=== PATIENT | male | born 1945 | race Caucasian/White ===

== ENCOUNTER 2019-07-11 09:22 | Day surgery (SDC) | payer MEDICARE, BC, OTHER ==
[~2019-07-11] VITALS: Ht 170.2 cm; Wt 77.5 kg
[~2019-07-11 09:22] MED LIST: ACET-683 PO; ALEV220T26 PO; ARTH650T11 PO; ASPI81TA26 PO; ASPI81TA85 PO; CARB25TA9 PO; CLON1TAB8 PO; COLA100C5 PO; COUM2.5T17 PO; DOCU-129 PO; DONE10TA90 PO; DOXY75TA2 PO; FLEEENE4 PR; FOLI1TAB11 PO; MILK120011 PO; MIRA3350 PO; MIRT15TA3 PO; MIRT1TAB15 PO; MULTLIQ7 PO; MYRB50TA PO; NS 1,000 ML IV ONE; PARO30TA PO; PERC5TAB12 PO; PERCOCET PO; QUET1TAB7 PO; ROPI1TAB PO; SENN-22 PO; SENO8.6T5 PO; TRAM50TA2 PO; TYLE325T5 PO; VESI10TA2 PO; [UNRECOGNIZED DRUG - OTHER] OR; curamin PO; fish oil OR; stool softener OR; vitamin C OR; zinc OR
[2019-07-11] MEDS ORDERED: PROPOFOL 200 MG/20 ML VIAL As Ordered ONE (10:36)
[2019-07-11] MEDS ORDERED: LIDOCAINE 2% INJ 100 MG/5 ML SDV (FOR ANES.) As Ordered ONE (10:37)
--- NOTE | 2019-07-11 10:52 | ROOR ---
Patient Name: Ambrose Tsang Procedure Date: 07/11/2019 10:25 AM Date of : 1945 Age: 74 Room: [facility] Gender: Male Note Status: Finalized Procedure: Total Colonoscopy to Cecum Indications: Colon cancer screening in patient at increased risk: Family history of 1st-degree relative with colon polyps, Last colonoscopy: 2013 Providers: Moo Harris MD Referring MD: JOSE MANUEL DERAS JR, MD Requesting Provider: Medicines: Monitored Anesthesia Care Complications: No immediate complications. Procedure: Pre-Anesthesia Assessment: - The heart rate, respiratory rate, oxygen saturations, blood pressure, adequacy of pulmonary ventilation, and response to care were monitored throughout the procedure. The Colonoscope was introduced through the anus and advanced to the cecum, identified by appendiceal orifice and ileocecal valve. The colonoscopy was performed without difficulty. The patient tolerated the procedure well. The quality of the bowel preparation was excellent. Findings: The perianal and digital rectal examinations were normal. Non-bleeding internal hemorrhoids were found during retroflexion. The hemorrhoids were small and Grade I (internal hemorrhoids that do not prolapse). Scattered small-mouthed diverticula were found in the recto-sigmoid colon, sigmoid colon and descending colon. The exam was otherwise without abnormality on direct and retroflexion views. Impression: - Non-bleeding internal hemorrhoids. - Diverticulosis in the recto-sigmoid colon, in the sigmoid colon and in the descending colon. - The examination was otherwise normal on direct and retroflexion views. - No specimens collected. - The exam was otherwise normal to the cecum. Recommendation: - Patient has a contact number available for emergencies. The signs and symptoms of potential delayed complications were discussed with the patient. Return to normal activities tomorrow. Written discharge instructions were provided to the patient. - High fiber diet. - Discharge patient to home. - Continue present medications. - Repeat colonoscopy Repeat for symptoms only. for surveillance. - Return to referring physician. - The findings and recommendations were discussed with the patient's family. Moo Harris MD Moo Harris MD 07/11/2019 10:52:24 AM Electronically signed by Moo Harris MD Number of Addenda: 0 Note Initiated On: 07/11/2019 10:25 AM Estimated Blood Loss: Estimated blood loss: none.
[2019-07-11 11:11] VITALS: BP 157/99
== END 2019-07-11 11:12 | disposition home or self-care (01) ==
LOC: M OPP 09:22
PROVIDERS: ATTEND Internal Medicine Gastroenterology
DX: Z12.11 Encounter for screening for malignant neoplasm of colon (principal); Z83.71 Family history of colonic polyps; K64.0 First degree hemorrhoids; K57.30 Diverticulosis of large intestine without perforation or abscess without bleeding; I10 Essential (primary) hypertension; M19.90 Unspecified osteoarthritis, unspecified site; F32.9 Major depressive disorder, single episode, unspecified; R51 Headache; G20 Parkinson's disease; G47.30 Sleep apnea, unspecified; R06.83 Snoring; Z88.8 Allergy status to other drugs, medicaments and biological substances; Z88.5 Allergy status to narcotic agent; Z79.82 Long term (current) use of aspirin; Z79.899 Other long term (current) drug therapy

== ENCOUNTER → 2020-09-08 | Outpatient (CLI) | payer MEDICARE, BC, OTHER ==
[~2020-09-08] MED LIST changes: -ASPI81TA85 PO; +ASPI81TA86 PO; +DOXY75TA PO; -DOXY75TA2 PO; -NS 1,000 ML IV ONE; -PARO30TA PO; +PARO30TA65 PO; -ROPI1TAB PO; +ROPI1TAB3 PO
== END ==
LOC: M LABSMTC 15:50
PROVIDERS: ATTEND Pediatrics
DX: Z20.828 Contact with and (suspected) exposure to other viral communicable diseases (principal)

== ENCOUNTER → 2021-08-13 | Outpatient (REF) | payer MEDICARE, BC, OTHER ==
[~2021-08-13] MED LIST changes: -DOCU-129 PO; +DOCU-153 PO; +QUET1TAB17 PO; -QUET1TAB7 PO
[2021-08-13 14:32] LABS: APPEARANCE, URINE HAZY (CLEAR); BACTERIA, URINE AUTO NEGATIVE (NEGATIVE); BILIRUBIN, URINE AUTO NEGATIVE (NEGATIVE); BLOOD, URINE BLOOD NEGATIVE (NEGATIVE); COLOR, URINE AMBER (YELLOW); GLUCOSE, URINE (UA) AUTO NEGATIVE (NEGATIVE); KETONE, URINE AUTO TRACE mg/dL (NEGATIVE); LEUKOCYTE ESTERASE, URINE AUTO NEGATIVE (NEGATIVE); MUCUS, URINE LARGE (NEGATIVE); NITRITE, URINE AUTO NEGATIVE (NEGATIVE); PROTEIN, URINE AUTO 1+ mg/dL (NEGATIVE); RBC, URINE AUTO 0 /HPF (0-3); SPECIFIC GRAVITY URINE AUTO 1.028 (1.002-1.035); SQUAMOUS EPITHELIAL CELL UR AU 0 /HPF (0-6); WBC, URINE AUTO 1 /HPF (0-3)
== END ==
LOC: M SMT 13:10
PROVIDERS: ATTEND Nurse Practitioner Women's Health
DX: N39.41 Urge incontinence (principal)
CPT/HCPCS: 51798; 81001; 87086; G0463

== ENCOUNTER → 2022-03-02 | Outpatient (CLI) | payer MEDICARE, BC, OTHER | LOC: M PLAIMG 13:14 | PROVIDERS: ATTEND Internal Medicine | DX: F03.90 Unspecified dementia, unspecified severity, without behavioral disturbance, psychotic disturbance, mood disturbance, and anxiety (principal); G20 Parkinson's disease ==

== ENCOUNTER → 2022-06-11 | Outpatient (CLI) | payer MEDICARE, BC, OTHER | LOC: M RAD 11:34 | PROVIDERS: ATTEND Surgery | DX: D48.1 Neoplasm of uncertain behavior of connective and other soft tissue (principal) ==

== ENCOUNTER → 2022-07-26 | Outpatient (CLI) | payer MEDICARE, BC, OTHER ==
[~2022-07-26] MED LIST changes: +AMAN100T PO; +D3 H10002 PO; +EQL50TAB2 PO; +OMEG10002 PO; +RIVA1DIS TOP; +VESI5TAB2 PO
[2022-07-26 13:18] VITALS: BP 119/71
== END ==
LOC: M IRPRO 13:03
PROVIDERS: ATTEND Surgery
DX: D48.1 Neoplasm of uncertain behavior of connective and other soft tissue (principal)